=== PATIENT | male | born 1970 | race Two or more races ===

== ENCOUNTER → 2021-09-15 | Emergency (ER) | payer OTHER ==
[~2021-09-15] VITALS: Ht 177.8 cm; Wt 100.7 kg
[~2021-09-15] MED LIST: GLUMETZA500 MG; ULTRACET PO
== END | disposition home or self-care (01) ==
LOC: ER 15:26
DX: M54.89 Other dorsalgia (principal); M54.2 Cervicalgia; Z88.8 Allergy status to other drugs, medicaments and biological substances

== ENCOUNTER 2021-10-09 06:54 | Outpatient (CLI) | payer OTHER | END 2021-10-09 07:00 | disposition home or self-care (01) | LOC: TOM 06:54 | DX: J30.9 Allergic rhinitis, unspecified (principal); J34.2 Deviated nasal septum; J34.3 Hypertrophy of nasal turbinates ==

== ENCOUNTER 2023-03-04 10:37 | Outpatient (CLI) | payer OTHER | END 2023-03-04 10:43 | disposition home or self-care (01) | LOC: RAD 10:37 | DX: R06.00 Dyspnea, unspecified (principal); F17.200 Nicotine dependence, unspecified, uncomplicated; Z88.6 Allergy status to analgesic agent ==

== ENCOUNTER 2023-03-05 17:39 | Emergency (ER) | payer OTHER ==
[~2023-03-05] VITALS: Ht 180.3 cm; Wt 93.0 kg
[2023-03-05] MEDS ORDERED: ZESTRIL10 M1 PO (17:57)
[2023-03-05 19:11] LABS: HEMATOCRIT 39.8 % (39.0-48.0); HEMOGLOBIN 13.5 g/dL (13-16.00); MEAN CELL VOLUME 93.8 fL (80.0-100.00); MEAN CORPUSCULAR HEMOGLOBIN 31.7 pg (27.00-32.0); MEAN CORPUSCULAR HGB CONC 33.8 g/dl (32.0-36.0); PLATELET COUNT 270 K/uL (150-450); RED BLOOD COUNT 4.24 M/uL (4.00-6.00); RED CELL DISTRIBUTION WIDTH 12.1 % (11.5-14.5)
[2023-03-05 19:22] LABS: PH,URINE 6.5 (5.0-8.0); URINE APPEARANCE Clear; URINE BILIRRUBIN Negative (NEGATIVE); URINE BLOOD Negative; URINE COLOR Yellow; URINE LEUKOCYTE Negative; URINE NITRATE Negative; URINE PROTEIN Negative (NEGATIVE)
[2023-03-05 19:25] LABS: URINE RBC 2.4 uL (0.0-20.8)
[2023-03-05 19:32] LABS: URINE BACTERIA 0 uL (0.0-1933); URINE EPITHELIAL CELLS 0.4 uL (0.0-38.8); URINE GLUCOSE >=1000 MG/DL (NEGATIVE); URINE WBC 0.3 uL (0.0-23.2)
[2023-03-05 19:34] LABS: ALBUMIN 3.4 gm/dL (3.4-5.0); BILIRUBIN TOTAL 0.45 mg/dL (0.3-1.2); CREATININE SERUM 1.07 mg/dL (0.70-1.30); GFR 72.86; POTASSIUM 5.7 mEq/L (3.5-5.1); TOTAL PROTEIN 7.4 gm/dL (6.4-8.2)
[2023-03-05] MEDS ORDERED: PEPCID AC20 MG PO (20:49)
[2023-03-05] MEDS ORDERED: CIPRO500 MG PO (20:49)
[2023-03-05] MEDS ORDERED: METRONIDAZOLE500 MG PO (20:49)
[2023-03-05] MEDS ORDERED: LEVSIN/SL0.125 MG SL (20:49)
== END 2023-03-05 21:33 | disposition home or self-care (01) ==
LOC: ER 17:39
PROVIDERS: General Practice
DX: K57.92 Diverticulitis of intestine, part unspecified, without perforation or abscess without bleeding (principal); N39.9 Disorder of urinary system, unspecified; Z88.6 Allergy status to analgesic agent; I10 Essential (primary) hypertension; E11.8 Type 2 diabetes mellitus with unspecified complications; Z79.84 Long term (current) use of oral hypoglycemic drugs

== ENCOUNTER 2023-10-28 07:19 | Outpatient (CLI) | payer OTHER ==
[~2023-10-28 07:19] MED LIST changes: +CIPRO500 MG PO; +LEVSIN/SL0.125 MG SL; +METRONIDAZOLE500 MG PO; +PEPCID AC20 MG PO; +TENORMIN25 MG PO; +ZESTRIL10 M1 PO
[2023-10-28 07:45] LABS: PH,URINE 5.5 (5.0-8.0); URINE APPEARANCE Clear; URINE BILIRRUBIN Negative (NEGATIVE); URINE BLOOD Negative; URINE COLOR Yellow; URINE GLUCOSE Negative (NEGATIVE); URINE LEUKOCYTE Negative; URINE NITRATE Negative; URINE PROTEIN Negative (NEGATIVE); URINE UROBILINOGEN 0.2 E.U./dl
[2023-10-28 07:50] LABS: URINE BACTERIA 0 uL (0.0-1933); URINE EPITHELIAL CELLS 0.6 uL (0.0-38.8); URINE RBC 0.7 uL (0.0-20.8); URINE WBC 0.6 uL (0.0-23.2)
[2023-10-28 08:24] LABS: CALCIUM 9.4 mg/dL (8.5-10.1); CHOL HDL RATIO 4.2 (0-5.0); CREATININE SERUM 1.07 mg/dL (0.70-1.30); GFR 72.57; POTASSIUM 4.6 mEq/L (3.5-5.1)
== END 2023-10-28 07:23 | disposition home or self-care (01) ==
LOC: LAB 07:19
PROVIDERS: ATTEND General Practice
DX: E11.22 Type 2 diabetes mellitus with diabetic chronic kidney disease (principal); E78.5 Hyperlipidemia, unspecified; R80.9 Proteinuria, unspecified